=== PATIENT | female | born 1985 | race Two or more races ===

== ENCOUNTER → 2020-06-10 | Outpatient (CLI) | payer OTHER | END | disposition home or self-care (01) | LOC: LAB 14:00 | PROVIDERS: ATTEND Physician Assistant | DX: Z20.828 Contact with and (suspected) exposure to other viral communicable diseases (principal) | CPT/HCPCS: C9803; U0003 ==

== ENCOUNTER → 2020-07-14 | Outpatient (CLI) | payer OTHER | END | disposition home or self-care (01) | LOC: LAB 06:51 | PROVIDERS: ATTEND Nurse Practitioner Family | DX: U07.1 COVID-19 (principal) | CPT/HCPCS: C9803; U0003 ==

== ENCOUNTER 2024-05-20 22:17 | Emergency (ER) | payer BC, OTHER ==
[~2024-05-20] VITALS: Ht 167.6 cm; Wt 89.8 kg
[~2024-05-20 22:17] MED LIST: ASPI-543 PO; CYCL-837 PO
[2024-05-21 00:55] LABS: Urine Bacteria None Seen /hpf (None Seen)
[2024-05-21 01:35] LABS: Urine Blood 3+ /uL (Negative); Urine Clarity Turbid (Clear); Urine Color Colorless (Yellow); Urine Mucus FEW (None Seen); Urine Protein, UAD TRACE (Negative); Urine Specific Gravity 1.022 (1.001-1.035); Urine Urobilinogen Normal (Negative); Urine WBC 4 /hpf (0 - 5); Urine pH 6.5 (5.0-9.0)
[2024-05-21 02:00] VITALS: BP 139/70; PULSE 80; RESP 13; TEMP 98.8; O2SAT 98
== END 2024-05-21 02:10 | disposition home or self-care (01) ==
LOC: EEVIPCON 22:17 → ER 22:17
DX: O20.9 Hemorrhage in early pregnancy, unspecified (principal); Z3A.18 18 weeks gestation of pregnancy; Z79.82 Long term (current) use of aspirin; Z79.899 Other long term (current) drug therapy
CPT/HCPCS: 76805; 76817; 81001; 82962